=== PATIENT | male | born 1990 | race Caucasian/White ===

== ENCOUNTER 2024-07-27 08:10 | Outpatient (CLI) | payer BC, SELFPAY | END 2024-07-27 08:11 | disposition home or self-care (01) | LOC: KYNREF 08:12 | PROVIDERS: PCP Nurse Practitioner Family; Visit Provider Nurse Practitioner Family | DX: B35.1 Tinea unguium (principal); Z51.81 Encounter for therapeutic drug level monitoring | CPT/HCPCS: 80076 ==

== ENCOUNTER 2024-09-07 13:49 | Outpatient (CLI) | payer BC, SELFPAY ==
--- NOTE | 2024-09-14 11:48 | W.PM.SLEEP ---
Sleep Study Details Details Interpreting Provider: Ephraim Date of Sleep Study: 09/07/24 Sleep Study Details: STUDY TYPE:? Home unattended ? BMI:? 30.3 ORDERING PROVIDER:? Ephraim INDICATION:? Concern about sleep apnea ? SLEEP SUMMARY:? 396 minutes monitored RESPIRATORY SUMMARY:? AHI 5.2 Low oxygen 87 0.7% of study oxygen less than 90% Snoring 100% PERIODIC LIMB MOVEMENTS OF SLEEP:? Not recorded CARDIAC:? Range 44-89, mean 58.3 beats per minute IMPRESSION:? Mild obstructive sleep apnea RECOMMENDATION: Treatment options include CPAP, dental appliance and/or airway expansion surgery.
== END 2024-09-07 13:50 | disposition home or self-care (01) ==
LOC: SLEEP 13:50
PROVIDERS: PCP Nurse Practitioner Family; Visit Provider Otolaryngology
DX: G47.33 Obstructive sleep apnea (adult) (pediatric) (principal)
CPT/HCPCS: 95806

== ENCOUNTER 2024-10-27 07:44 | Outpatient (CLI) | payer BC, SELFPAY | END 2024-10-27 07:45 | disposition home or self-care (01) | LOC: NFLDREF 10-31 17:55 | PROVIDERS: PCP Nurse Practitioner Family; Referring Provider Nurse Practitioner Family; Visit Provider Nurse Practitioner Family | DX: Z51.81 Encounter for therapeutic drug level monitoring (principal) | CPT/HCPCS: 80076 ==